=== PATIENT | female | born 1945 | race Caucasian/White ===

== ENCOUNTER 2019-01-15 20:58 | Emergency (ER) | payer OTHER ==
[~2019-01-15] VITALS: Ht 167.6 cm; Wt 83.9 kg
[~2019-01-15 20:58] MED LIST: ASPIRIN EC81 M1 PO; ATENOLOL 25 MG25 M1 PO; ATENOLOL 25MG T25 MG PO; CALCIUM 600 +1 EA10 PO; CALCIUM 600 +1 EAC8 PO; CALCIUM W/VIT1 EACH; COZAAR 50 MG TA50 M2 PO; DIOVAN HCT 1601 EACH PO; FISHOIL PO; FLONASE 0.05%50 MCG NS; GLUCOSAMINE HC500 MG PO; HYZAAR 100-12.1 EACH PO; HYZAAR PO; LEVOTHYROXIN0.112 M1 PO; LOSARTAN-HCTZ1 EAC2 PO; MULTIVITAMINS PO; POTASSIUM20 PO; PREDNISONE 1 MG1 M1 PO; PREDNISONE PO; PREMPRO 0.45-11 EACH PO; SYNTHROID112 MCG PO; VITAMIN D 5050000 I1 PO
[2019-01-15] MEDS ORDERED: VITAMIN D5000 UNIT PO (21:07)
[2019-01-15] MEDS ORDERED: PROVERA2.5 MG PO (21:08)
[2019-01-15] MEDS ORDERED: ATROVENT HFA14 GM INH (21:09)
[2019-01-15 23:40] VITALS: BP 187/70
== END 2019-01-15 23:42 | disposition home or self-care (01) ==
LOC: ER 20:58
DX: S61.211A Laceration without foreign body of left index finger without damage to nail, initial encounter (principal); I10 Essential (primary) hypertension; E03.9 Hypothyroidism, unspecified; Z88.6 Allergy status to analgesic agent; W26.8XXA Contact with other sharp object(s), not elsewhere classified, initial encounter; Y93.89 Activity, other specified; Y92.89 Other specified places as the place of occurrence of the external cause; Y99.8 Other external cause status